=== PATIENT | female | born 1955 | race Caucasian/White ===

== ENCOUNTER 2024-01-30 09:43 | Outpatient (CLI) | payer MEDICARE | END 2024-01-30 23:59 | disposition home or self-care (01) | LOC: RAD 09:43 | PROVIDERS: ATTEND Physician Assistant | DX: R76.12 Nonspecific reaction to cell mediated immunity measurement of gamma interferon antigen response without active tuberculosis (principal) | CPT/HCPCS: 71046 ==

== ENCOUNTER 2024-11-01 17:54 | Emergency (ER) | payer MEDICARE ==
[~2024-11-01] VITALS: Ht 154.9 cm; Wt 65.0 kg
[2024-11-01] MEDS ORDERED: CLIN300C97 PO (21:06)
[2024-11-01] MEDS ORDERED: PSEU60TA98 PO (21:06)
[2024-11-01] MEDS ORDERED: CEFP100T7 PO (21:06)
[2024-11-01] MEDS: clindamycin 150mg capsule PO ONE (21:33)
[2024-11-01] MEDS: cefdinir 300mg capsule PO ONE (22:07)
[2024-11-01] MEDS: cefpodoxime proxetil 100mg tablet PO ONE (22:07)
[2024-11-01 22:09] VITALS: BP 113/70; PULSE 80; RESP 18; TEMP 98.6; O2SAT 99
== END 2024-11-01 22:11 | disposition home or self-care (01) ==
LOC: ER 17:54
DX: S02.32XB Fracture of orbital floor, left side, initial encounter for open fracture (principal); S00.12XA Contusion of left eyelid and periocular area, initial encounter; W01.0XXA Fall on same level from slipping, tripping and stumbling without subsequent striking against object, initial encounter; Y93.89 Activity, other specified; Y92.89 Other specified places as the place of occurrence of the external cause; Y99.8 Other external cause status
CPT/HCPCS: 70450; 70486; 72125; 99284